=== PATIENT | male | born 1960 | race Caucasian/White ===

== ENCOUNTER 2017-02-11 01:39 | Emergency (ER) | payer OTHER ==
[2017-02-11 02:55] LABS: #Basophils 0.1 thou/uL (0.0-0.2); #Lymphocytes 1.2 thou/uL (1.20-3.40); #Monocytes 0.8 thou/uL (0.11-0.59); #Neutrophils 17.7 thou/uL (1.40-6.50); %Basophils 0.5 % (0.0-1.0); %Eosinophils 0.1 % (0.0-10.0); %Monocytes 4.2 % (0.0-10.0); %Neutrophils 89.2 % (42.0-75.0); Hemoglobin 16.2 g/dL (14.0-18.0); Mean Corpuscular Hemoglobin 29.8 pg (27.0-31.0); Mean Corpuscular Volume 90.5 fl (80.0-94.0); Mean Platelet Volume 6.6 fL (7.4-10.4); Platelet Count 269 thou/uL (130-400); RBC Distribution Width 12.5 % (11.5-14.5); Red Blood Cell (RBC) Count 5.42 mill/uL (4.70-6.10); White Blood Cell (WBC) Count 19.9 thou/uL (4.8-10.8)
[2017-02-11 03:05] LABS: ALT (SGPT) 46 U/L (0-55); AST (SGOT) 66 U/L (5-34); Albumin 4.5 g/dL (3.5-5.0); Alcohol Less than 10 mg/dL (Less than 10); Alkaline Phosphatase 52 U/L (40-150); Anion Gap 17 mmol/L (10-20); BUN (Urea Nitrogen) 16 mg/dL (8.4-25.7); Bilirubin, Total 0.4 mg/dL (0.2-1.2); Calc. Creatinine Clearance 0 mL/min (70-130); Calcium 9.5 mg/dL (7.8-10.44); Carbon Dioxide 21 mmol/L (22-29); Chloride 104 mmol/L (98-107); Estimated GFR-MDRD 84; Globulin 2.4 g/dL (2.4-3.5); Glucose 134 mg/dL (70-105); Potassium 3.9 mmol/L (3.5-5.1); Protein, Total 6.9 g/dL (6.0-8.3); Sodium 138 mmol/L (136-145)
[2017-02-11] MEDS ORDERED: Sterile Water Irrigation 250 ML BOT ONE (07:36)
--- NOTE | 2017-02-11 08:23 | RAD ---
SINGLE VIEW OF THE CHEST: COMPARISON: 02/11/17. HISTORY: Status post right thoracotomy. FINDINGS: A single view of the chest shows a normal cardiomediastinal silhouette. There is elevation of the r ight hemidiaphragm. There is a right-sided chest tube which is slightly changed in position compare d to the prior examination. There is blunting of the right costophrenic angle which may represent a small pleural effusion. No pneumothorax is seen. IMPRESSION: Small right pleural effusion. POS: [facility]
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
[2017-02-11] MEDS ORDERED: Iopamidol 370 76% 100 ML VIAL ONE (09:06)
== END 2017-02-11 03:30 | disposition short-term general hospital (02) ==
LOC: MADERS 01:39
DX: S27.0XXA Traumatic pneumothorax, initial encounter (principal); F17.210 Nicotine dependence, cigarettes, uncomplicated; V89.2XXA Person injured in unspecified motor-vehicle accident, traffic, initial encounter
CPT/HCPCS: 32554; 70450; 71010; 71260; 72125; 74177; 80053; 80307; 85025; 93005; 96374; 99152; 99153; J2270